=== PATIENT | male | born 1950 | race Caucasian/White ===

== ENCOUNTER 2018-12-13 09:56 | Emergency (ER) | payer OTHER, MEDICARE ==
--- NOTE | 2018-12-13 10:23 | CPEKG ---
Test Reason : OPEN Blood Pressure : / mmHG Vent. Rate : 089 BPM Atrial Rate : 089 BPM P-R Int : 177 ms QRS Dur : 083 ms QT Int : 359 ms P-R-T Axes : 071 070 039 degrees QTc Int : 437 ms Sinus rhythm Confirmed by Marcelo Hunter ([id number]) on 12/13/2018 10:23:10 AM Referred By: Confirmed By:Marcelo Hunter
--- NOTE | 2018-12-13 10:41 | EDPHY ---
General Time Seen by Provider: 12/13/18 10:16 Narrative: CLINICAL IMPRESSION: Syncope, episodic lightheadedness ASSESSMENT/PLAN: 68-year-old male with past medical history of prostate cancer, post radical prostatectomy in 2006, presents to the emergency department after he experienced a syncopal event at 4:00 a.m. This morning associated with episodic lightheadedness since last night. Patient arrives asymptomatic with no physical complaints. Vital signs are stable. No focal neuro deficits on exam. NIH score of 0 with no limb ataxia. EKG shows normal sinus rhythm with no acute ST or T-wave changes, reviewed with Dr. Hunter. Troponin negative. No laboratory findings to suggest anemia, leukocytosis, renal insufficiency, electrolyte imbalance, severe dehydration. Troponin negative. CT head read by Radiology with no acute intracranial abnormality or skull fracture. Patient denies headache, dizziness, vertigo, acute vision or hearing change at this time. Chest x-ray read by Radiology with multiple pulmonary nodules. Patient admits he has had a chronic cough for many years. No smoking history. Patient has no tachycardia, hypoxia, and no complaints of chest pain, shortness of breath, pleuritic chest discomfort, lower leg edema or swelling. I have a very low clinical suspicion for DVT or PE in this patient. I had a long discussion with him and his regarding his diagnostic evaluation and results of his studies. I did discuss an offer admission for further evaluation. They have refused at this time and preferred to follow up with primary care. They were able to establish a primary care appointment on of this week. He was provided copies of his chest x-ray on disc as well as copies of his EKG. Low threshold for return to emergency department sooner as outlined in person and discharge papers. DIFFERENTIAL DX: Differential diagnosis including but not limited to vasovagal syncope, cardiogenic syncope, ACS, renal insufficiency, dehydration, arrhythmia, symptomatic bradycardia hypoglycemia, infectious process, electrolyte abnormality, head injury and intoxicants ED PROCEDURES: See lab and/or imaging results below ED COURSE: 11:00 a.m.: Case discussed with Dr. Thrasher. Chest x-ray shows multiple pulmonary nodules. No prior chest x-ray or chest CT for comparison. 11:35 A.M.: Head CT read by Radiology as negative for acute abnormality. 11:40 a.m.: CT, chest x-ray, laboratory evaluation and EKG reviewed with the patient and his . I did personally show them pictures of his chest x-ray with radiologic indication of multiple pulmonary nodules. We discussed options including admission for further cardiac evaluation and possible chest CT as well as discharge with outpatient PCP follow-up. Patient is followed by [facility]. He feels strongly about discharge and would like to follow up with primary care. They would like to call primary care to see if they can establish an appointment tomorrow. 12:00 p.m.: Patient was able to get an appointment with his primary care doctor on . They wished to be discharged. I will give them detailed discharge instructions as well as copies of EKG and chest x-ray. Warning signs return to emergency department sooner outlined in person and patient and had opportunity to have all questions answered. CHIEF COMPLAINT: Lightheadedness, syncope HPI: 68-year-old male with past medical history of prostate cancer presents to the emergency department with his after he had a syncopal episode at 4:00 a.m. This morning while at a condo in [facility]. Patient reports they had been in [facility] for the whole weekend. He was playing with his children and grandchildren yesterday. He was feeling well throughout the day. Last evening he began experiencing what he describes as lightheadedness associated with"indigestion". He also was feeling somewhat queasy. He woke at 4:00 a.m. To use the restroom and reportedly side up feeling"significantly lightheaded". He use the restroom, walked to the kitchen to get water, and then returning to the bedroom he apparently had a unwitnessed syncopal event. His heard a crash, got up, and states that he was"coming to". She helped him back to bed, he rested for about 20 min and then [place] to [place]. They do live here. He reports past history of intermittent dizzy episodes but has not had this for some time. He reports no coinciding headache, vertigo, neck pain, tinnitus, acute vision or hearing changes. No weakness or numbness of the arms or legs, speech difficulty or word -finding difficulty. No chest pain or shortness of breath. He admits that he did not drink much water yesterday, had 2 cups of coffee, a Pepsi, and split 1 beer with his last night. He currently feels much better, denies lightheadedness and otherwise feels well. He has no personal history of cardiac disease and no family history of cardiac disease. He has borderline hyperlipidemia that is not treated with medications. No history of hypertension or diabetes. He does not smoke. He is otherwise healthy, normally participates in physical activity without difficulty including high- altitude hiking. He did not take anything for his symptoms before arrival PAST MEDICAL HISTORY: Prostate cancer in 2006, borderline hyperlipidemia See nurse/triage notes for additional history if applicable Pertinent Past Surgical History: Radical prostatectomy Family History: None reported Social History: Nonsmoker, , here with his REVIEW OF SYSTEMS: All other systems negative Constitutional: No fever, no chills, appetite change. Eyes: No discharge, vision change ENT: No sore throat, congestion, ear pain. Cardiovascular: No chest pain, no palpitations. Respiratory: No cough, no shortness of breath. Gastrointestinal: No abdominal pain, positive for nausea, no vomiting, diarrhea. Genitourinary: No hematuria, dysuria, flank pain, pelvic pain Musculoskeletal: No back pain, joint swelling, joint pain, myalgias. Skin: No rashes, color change. Neurological: No headache, positive for dizziness, weakness. PHYSICAL EXAM: General Appearance: Alert, oriented, appropriate, cooperative, NAD, well hydrated, non-toxic appearing, VSS, no hypoxia. HEENT: TMs are clear bilaterally no perforation or FB, no injection, no evidence of serous or mucopurulent otitis. Oropharynx clear is no erythema or exudates, no tonsillar hypertrophy or asymmetry. Dentition without abnormality. Eyes: PERRLA, no acute vision change, nystagmus, swelling, discharge, pain or photosensitivity. Conjunctiva pink, no pallor or injection Neck: Supple, nontender, no lymphadenopathy, no midline pain, FROM, no meningismus. Respiratory: There are no retractions, lungs are clear to auscultation. Cardiac: Regular rate and rhythm, no murmurs or gallops. Gastrointestinal: Abdomen is soft, nontender, bowel sounds normal, no masses/ hernia, no rigidity, guarding or focal peritoneal findings. Neurological: Alert and oriented x 3, CN 2-12 grossly intact, normal gait no ataxia, DTR's intact, normal sensation and strength. NIH score 0 with no limb ataxia Skin: Warm, dry, no rashes, no nodules on palpation. Musculoskeletal: Extremities are symmetrical, full range of motion, no tenderness, deformity, swelling, or erythema. Psychiatric: Patient is oriented X 3, there is no agitation. MEDICAL DECISION MAKING: Patient was seen independently but discussed with Secondary supervising physician at time of evaluation who was Dr Hunter . Diagnosis: Syncope, episodic lightheadedness. New, requires workup Summary: See Assessment and Plan for summary of ED visit Clinical lab tests: ordered / reviewed. Independent visualization of images, tracing, or specimens: Yes. Decision to obtain medical records or history from someone other than the patient: Patient's \\ Discussed patient with another provider: Dr. Hunter Patient Progress: Stable. - Diagnostics Imaging Results: Imaging Impressions Chest X-Ray 12/13/18 10:20 Impression: 1. Suspect airways disease without pneumonia 2. Possibly 3 small pulmonary nodules. If there are any old outside imaging studies of the chest, we would be happy to review them to assess for interval change. If not recommend noncontrast chest CT. Results discussed with Larry Connelly at 10:[address] 12/13/18 10:41 Impression: No acute intracranial process. Findings and recommendations discussed with Larry Connelly at 1136 hour, . - History Smoking Status: Never smoked - Objective Vital Signs: Initial Vital Signs Heart Rate 89 12/13/18 10:00 Respiratory Rate 16 12/13/18 10:00 Blood Pressure 154/81 H 12/13/18 10:00 O2 Sat (%) 96 01/21/19 10:00 O2 Delivery Mode Room Air Allergies/Adverse Reactions: No Known Allergies Allergy (Unverified 12/13/18 10:00) Home Medications: Medication Instructions Recorded Aspirin 81mg (*) 12/13/18 Fish Oil 1,000 mg Softgel 12/13/18 Vitamin D3 12/13/18 Laboratory Results: Laboratory Results 12/13/18 10:40 12/13/18 10:40 12/13/18 12/13/18 12/13/18 10:42 10:40 10:40 WBC 7.98 10^3/uL 10^3/uL (3.80-9.50) RBC 4.97 10^6/uL 10^6/uL (4.40-6.38) Hgb 15.2 g/dL g/dL (13.7-17.5) Hct 45.3 % % (40.0-51.0) MCV 91.1 fL fL (81.5-99.8) MCH 30.6 pg pg (27.9-34.1) MCHC 33.6 g/dL g/dL (32.4-36.7) RDW 13.1 % % (11.5-15.2) Plt Count 219 10^3/uL 10^3/uL (150-400) MPV 9.7 fL fL (8.7-11.7) Neut % (Auto) 88.4 % H % (39.3-74.2) Lymph % (Auto) 6.3 % L % (15.0-45.0) [place] % (Auto) 4.3 % L % (4.5-13.0) Eos % (Auto) 0.3 % L % (0.6-7.6) Baso % (Auto) 0.4 % % (0.3-1.7) Nucleat RBC Rel Count 0.0 % % (0.0-0.2) Absolute Neuts (auto) 7.05 10^3/uL H 10^3/uL (1.70-6.50) Absolute Lymphs (auto) 0.50 10^3/uL L 10^3/uL (1.00-3.00) Absolute Monos (auto) 0.34 10^3/uL 10^3/uL (0.30-0.80) Absolute Eos (auto) 0.02 10^3/uL L 10^3/uL (0.03-0.40) Absolute Basos (auto) 0.03 10^3/uL 10^3/uL (0.02-0.10) Absolute Nucleated RBC 0.00 10^3/uL 10^3/uL (0-0.01) Immature Gran % 0.3 % % (0.0-1.1) Immature Gran # 0.02 10^3/uL 10^3/uL (0.00-0.10) RBC/WBC/PLT Morphology TNP Platelet Estimate TNP Sodium 136 mEq/L mEq/L (135-145) Potassium 4.4 mEq/L mEq/L (3.5-5.2) Chloride 110 mEq/L mEq/L (97-110) Carbon Dioxide 20 mEq/l L mEq/l (22-31) Anion Gap 6 mEq/L mEq/L (6-14) BUN 21 mg/dL mg/dL (7-23) Creatinine 1.1 mg/dL mg/dL (0.7-1.3) Estimated GFR > 60 Glucose 98 mg/dL mg/dL (70-100) Calcium 8.9 mg/dL mg/dL (8.5-10.4) POC Troponin I 0.00 ng/mL ng/mL (0.00-0.08) Point of Care Test Results: Chemistry 12/13/18 10:42 POC Troponin I 0.00 ng/mL ng/mL (0.00-0.08) Departure - Departure Disposition: Home, Routine, Self-Care Clinical Impression: Episodic lightheadedness Syncope Qualifiers: Syncope type: unspecified Qualified Code(s): R55 - Syncope and collapse Condition: Good Instructions: Syncope (ED) Additional Instructions: DISCHARGE INSTRUCTIONS FROM YOUR DOCTOR Thank you for visiting our emergency department today. Please keep in mind that discharge from the emergency department does not mean that there is nothing wrong - it simply means that we have not identified an emergency condition that requires further evaluation or treatment in the hospital. You should always plan to follow up with primary care for re-evaluation of your condition in the next 2-3 days. If you have been referred to a specialist, please call as soon as possible (today or tomorrow) to schedule your follow up appointment at the appropriate time. YOUR DIAGNOSTIC EVALUATION IN THE EMERGENCY DEPARTMENT INCLUDED EKG, CARDIAC ENZYMES, CBC, BASIC METABOLIC PANEL, CT OF THE HEAD, AND CHEST X-RAY. WE PROVIDED COPIES OF YOUR CT SCAN ON A DISC AND COPIES OF THE EKG. CT SCAN WAS READ BY THE RADIOLOGIST NEGATIVE FOR ACUTE ABNORMALITY. YOU DO HAVE MULTIPLE PULMONARY NODULES ON CHEST X-RAY. IT WAS RECOMMENDED BY RADIOLOGY THAT THIS BE FOLLOWED UP BY A CT SCAN OF THE CHEST. LAB WORK TODAY SHOWED NEGATIVE CARDIAC ENZYMES, NORMAL ELECTROLYTES AND RENAL FUNCTION, NO ANEMIA OR ELEVATION IN THE WHITE BLOOD COUNT, AND NO OTHER SIGNIFICANT ABNORMALITIES. WE DID DISCUSS AN OFFER ADMISSION FOR FURTHER EVALUATION AND WORKUP SECONDARY TO SYNCOPE. YOU HAVE DECLINED AND WISHED TO FOLLOW UP WITH YOUR PRIMARY CARE PROVIDER. PLEASE KEEP THIS APPOINTMENT. PLEASE RETURN TO THE EMERGENCY DEPARTMENT IMMEDIATELY FOR RETURN OF LIGHTHEADEDNESS OR DIZZINESS, VERTIGO, SEVERE HEADACHES, ALTERED MENTAL STATUS, UNILATERAL ARM OR LEG WEAKNESS, TROUBLE WALKING, TROUBLE FINDING YOUR WORDS, CHEST PAIN OR SHORTNESS OF BREATH, UNEXPLAINED LEG SWELLING, ABDOMINAL PAIN NAUSEA VOMITING, FEVER OR ANY OTHER CONCERNS. People present with illnesses and injuries in different ways, and it is always possible that we have missed something. You may always return for re-evaluation if symptoms worsen or if they are not improving or if you develop new/different symptoms. Again, thank you for choosing our emergency department. We hope that you feel better. Referrals: CAM JOSEPH [Primary Care Provider] - 2-3 days without fail
[2018-12-13 10:51] LABS: PLATELET COUNT 219 10^3/uL (150-400)
[2018-12-13 12:07] VITALS: BP 120/76
== END 2018-12-13 12:38 | disposition home or self-care (01) ==
DX: R55 Syncope and collapse (principal); R91.8 Other nonspecific abnormal finding of lung field
CPT/HCPCS: 84484-ER

== ENCOUNTER → 2018-12-31 | Outpatient (CLI) | payer OTHER, MEDICARE | LOC: BHFA 14:00 | PROVIDERS: ATTEND Internal Medicine Cardiovascular Disease | DX: R55 Syncope and collapse (principal) ==

== ENCOUNTER 2019-01-01 20:46 | Observation (INO) | payer OTHER, MEDICARE ==
[2019-01-01] MEDS ORDERED: NS 1,000 ML IV ONE (20:55)
--- NOTE | 2019-01-01 20:58 | EDPHY ---
H & P Time Seen by Provider: 01/01/19 20:56 HPI/ROS: HPI CHIEF COMPLAINT: Possible syncope at dinner. HISTORY OF PRESENT ILLNESS: 68-year-old male presents emergency room by EMS after he had a syncopal episode at dinner. He was seated position. States he was in a seated position for approximately 2 hr. He is having dinner. He did have a glass of wine. He felt all the sudden lightheaded felt like he was going to pass out and laid his head down on the table. He is unsure exactly if he passed out. 911 was called. Denies any chest pain or palpitations denied headache. Denied dizziness room spinning. [place] very lightheaded. Reports to me that he recently had this lightheadedness and present to the emergency room approximately 2 weeks ago for this. Was discharged subsequently home with placed on Holter monitor. He states they have not found anything for his lightheadedness previously. He arrives to the emergency room hemodynamically stable EMS reports initial blood pressure was 70s over 40s Improved 90s over 50s. Past Medical History: Denies significant medical history Past Surgical History: Denies significant surgical history Social History: Denies drugs alcohol tobacco. Did have a glass of wine tonight. Family History: Noncontributory ROS REVIEW OF SYSTEMS: 10 Systems were reviewed and negative with the exception of the elements mentioned in the history of present illness. Exam Constitutional nontoxic, no acute distress triage nursing summary reviewed, vital signs reviewed, awake/alert. Vital signs stable Eyes normal conjunctivae and sclera, EOMI, PERRLA. HENT normal inspection, atraumatic, moist mucus membranes, no epistaxis, neck supple/ no meningismus, no raccoon eyes. Respiratory clear to auscultation bilaterally, normal breath sounds, no respiratory distress, no wheezing. Cardiovascular rate normal, regular rhythm, no murmur, no edema, distal pulses normal. Gastrointestinal soft, non-tender, no rebound, no guarding, normal bowel sounds, no distension, no pulsatile mass. Genitourinary no CVA tenderness. Musculoskeletal no midline vertebral tenderness, full range of motion, no calf swelling, no tenderness of extremities, no meningismus, good pulses, neurovascularly intact. Skin pink, warm, & dry, no rash, skin atraumatic. Neurologic awake, alert and oriented x 3, AAOx3, moves all 4 extremities equally, motor intact, sensory intact, CN II-XII intact, normal cerebellar, normal vision, normal speech. Psychiatric normal mood/affect. Heme/Lymph/Immune no lymphadenopathy. Differential Diagnosis: Differential diagnosis includes but is not limited to: ACS, atypical chest pain, pneumothorax, pneumonia, pulmonary embolism, aortic dissection, congestive heart failure, tumor, musculoskeletal pain, esophageal pain, GERD, peptic ulcer disease, pancreatitis Medical Decision Making: Plan for this patient IV establishment IV fluid bolus , EKG, troponin, basic electrolytes, cardiac monitoring. Re-evaluation: 2057: Given that this is this patient's 2nd episode of this plan will be for admission the hospital for further evaluation of syncope and cardiac arrhythmia. This happened tonight at rest while seated. EKG interpretation by me on record in [employer] system. Impression time of EKG 2055, sinus rhythm rate of 70 no signs of cardiac arrhythmia no signs of acute ischemia. EKG stable from previous EKG dated 12/13/2018. ED x-ray chest one view negative for acute cardiopulmonary disease. Image interpreted by myself. Troponin 0.01 EKG stable I have asked the hospitalist service to admit the patient for syncope. Spoke with Jose Nelson. Agrees to admit. 2156: Patient agrees for hospital admission. Agrees for admission syncope. Patient here in emergency room heart rate 76, blood pressure 117/69, pulse ox 90 % on room air. Patient resting comfortably. No chest pain or shortness of breath. Source: Patient, EMS - Medical/Surgical History Hx Asthma: No Hx Chronic Respiratory Disease: No Hx Diabetes: No Hx Cardiac Disease: No Hx Renal Disease: No Hx Cirrhosis: No Hx Alcoholism: No Hx HIV/AIDS: No Hx Splenectomy or Spleen Trauma: No Other PMH: prostatectomy for prostate cancer - Social History Smoking Status: Never smoked Constitutional: Initial Vital Signs Temperature (C) 36.7 C 01/01/19 20:55 Heart Rate 74 01/01/19 20:55 Respiratory Rate 16 01/01/19 20:55 Blood Pressure 120/75 01/01/19 20:55 O2 Sat (%) 96 01/01/19 20:55 O2 Delivery Mode Room Air O2 (L/minute) 2 Allergies/Adverse Reactions: No Known Allergies Allergy (Verified 01/01/19 20:55) Home Medications: Medication Instructions Recorded Aspirin [Aspirin 81mg (*)] 81 mg PO DAILY 12/13/18 Cholecalciferol Vit D3 [Vitamin D3 2,000 units PO DAILY 12/13/18 (*)] [place]-3 Fatty Acids [Fish Oil 1000 1,000 mg PO DAILY 12/13/18 mg (*)] Medical Decision Making - Data Points Laboratory Results: Laboratory Results 01/01/19 20:45 01/01/19 20:45 Medications Given: Discontinued Medications Heparin Sodium (Porcine) (Heparin Sc Injection) 5,000 unit SC Q8 HARRIET Stop: 06/30/19 21:59 Last Admin: 01/02/19 22:24 Dose: 5,000 unit Sodium Chloride (Ns) 1,000 mls @ 0 mls/hr IV EDNOW ONE; Wide Open PRN Reason: Protocol Stop: 01/01/19 20:56 Last Admin: 01/01/19 21:03 Dose: 1,000 mls Sodium Chloride (Ns) 1,000 mls @ 75 mls/hr IV CONT HARRIET Stop: 06/30/19 21:59 Last Admin: 01/01/19 23:09 Dose: 1,000 mls Lidocaine HCl (Lidocaine Hcl 1%) 0 - 300 mg SC ONCALL ONE Stop: 01/03/19 00:47 Last Admin: 01/03/19 10:49 Dose: 100 mg Point of Care Test Results: Chemistry 01/01/19 21:05 POC Troponin I 0.01 ng/mL ng/mL (0.00-0.08) Departure - Departure Disposition: [facility] Inpatient Acute Clinical Impression: Syncope Qualifiers: Syncope type: unspecified Qualified Code(s): R55 - Syncope and collapse Condition: Fair
[2019-01-01 21:13] LABS: PLATELET COUNT 206 10^3/uL (150-400)
--- NOTE | 2019-01-01 21:32 | PDGENHP ---
History and Physical - Chief Complaint Presyncope - History of Present Illness Patient is a 68-year-old healthy male presented to the emergency room after his was concerned that he nearly fainted. He was sitting with his after dinner just talking when he said that he felt very full. He does not think that he passed out and he did not get dizzy or feel faint but his said that he looked very pale and maybe for a few seconds put his head down. Afterwards they said that he did not look good and so they called EMS and had him transported to [facility] for further evaluation. He denied having any racing heart, or chest pain and denied any dizziness faintness seeing stars blurry or tunnel vision. He had an episode similar to this about 3 weeks ago while he was at [facility] [employer]. He got up in the middle of the night to have a drink of water and while walking back to his bed apparently fainted and fell on the floor. The next morning they drove back to [place] and came to the emergency room. He had a Holter monitor placed and a carotid ultrasound and an appointment was scheduled for him to follow up with Cardiology in about a week. History Information - Allergies/Home Medication List Allergies/Adverse Reactions: No Known Allergies Allergy (Verified 01/01/19 20:55) Home Medications: Aspirin 81mg (*) 12/13/18 [Last Taken Unknown] Fish Oil 1,000 mg Softgel 12/13/18 [Last Taken Unknown] Vitamin D3 12/13/18 [Last Taken Unknown] I have personally reviewed and updated: family history, medical history, social history, surgical history - Past Medical History Additional medical history: prostate cancer - Surgical History Additional surgical history: prostectomy - Family History Positive for: non-pertinent - Social History Smoking Status: Never smoked Review of Systems Review of Systems: ROS: 10pt was reviewed & negative except for what was stated in HPI & below Physical Exam Physical Exam: Temp Pulse Resp BP Pulse Ox 36.7 C 74 16 120/75 100 01/01/19 20:55 01/01/19 20:55 01/01/19 20:55 01/01/19 20:55 01/01/19 20:55 Constitutional: no apparent distress, appears nourished, not in pain Eyes: PERRL, anicteric sclera, EOMI Ears, Nose, Mouth, Throat: moist mucous membranes, hearing normal, ears appear normal, no oral mucosal ulcers Cardiovascular: regular rate and rhythym, no murmur, rub, or gallop, No edema Respiratory: no respiratory distress, no rales or rhonchi, clear to auscultation Gastrointestinal: normoactive bowel sounds, soft, non-tender abdomen, no palpable masses Genitourinary: no bladder fullness, no bladder tenderness Skin: warm, normal color, no rashes or abrasions, no fluctuance, no induration, No mottled Musculoskeletal: full muscle strength, no muscle tenderness, normal joint ROM, no joint effusions Psychiatric: interacting appropriately, not anxious, not encephalopathic, thought process linear Lymph, Heme, Immunologic: no cervical LAD, no supraclavicular LAD Lab Data & Imaging Review 01/01/19 20:45 01/01/19 20:45 WBC 8.28 10^3/uL (3.80-9.50) 01/01/19 20:45 RBC 5.16 10^6/uL (4.40-6.38) 01/01/19 20:45 Hgb 15.4 g/dL (13.7-17.5) 01/01/19 20:45 Hct 46.2 % (40.0-51.0) 01/01/19 20:45 MCV 89.5 fL (81.5-99.8) 01/01/19 20:45 MCH 29.8 pg (27.9-34.1) 01/01/19 20:45 MCHC 33.3 g/dL (32.4-36.7) 01/01/19 20:45 RDW 13.1 % (11.5-15.2) 01/01/19 20:45 Plt Count 206 10^3/uL (150-400) 01/01/19 20:45 MPV 10.0 fL (8.7-11.7) 01/01/19 20:45 Neut % (Auto) 51.6 % (39.3-74.2) 01/01/19 20:45 Lymph % (Auto) 37.7 % (15.0-45.0) 01/01/19 20:45 Esmeralda % (Auto) 7.4 % (4.5-13.0) 01/01/19 20:45 Eos % (Auto) 1.7 % (0.6-7.6) 01/01/19 20:45 Baso % (Auto) 1.2 % (0.3-1.7) 01/01/19 20:45 Nucleat RBC Rel Count 0.0 % (0.0-0.2) 01/01/19 20:45 Absolute Neuts (auto) 4.28 10^3/uL (1.70-6.50) 01/01/19 20:45 Absolute Lymphs (auto) 3.12 10^3/uL (1.00-3.00) H 01/01/19 20:45 Absolute Monos (auto) 0.61 10^3/uL (0.30-0.80) 01/01/19 20:45 Absolute Eos (auto) 0.14 10^3/uL (0.03-0.40) 01/01/19 20:45 Absolute Basos (auto) 0.10 10^3/uL (0.02-0.10) 01/01/19 20:45 Absolute Nucleated RBC 0.00 10^3/uL (0-0.01) 01/01/19 20:45 Immature Gran % 0.4 % (0.0-1.1) 01/01/19 20:45 Immature Gran # 0.03 10^3/uL (0.00-0.10) 01/01/19 20:45 Sodium 138 mEq/L (135-145) 01/01/19 20:45 Potassium 4.0 mEq/L (3.5-5.2) 01/01/19 20:45 Chloride 107 mEq/L (97-110) 01/01/19 20:45 Carbon Dioxide 23 mEq/l (22-31) 01/01/19 20:45 Anion Gap 8 mEq/L (6-14) 01/01/19 20:45 BUN 21 mg/dL (7-23) 01/01/19 20:45 Creatinine 1.2 mg/dL (0.7-1.3) 01/01/19 20:45 Estimated GFR 60 01/01/19 20:45 Glucose 106 mg/dL (70-100) H 01/01/19 20:45 Calcium 9.1 mg/dL (8.5-10.4) 02/09/19 20:45 Assessment & Plan Assessment: 68-year-old healthy male admitted with syncope Syncope (Acute)- his EKG is completely normal. Labs unremarkable. Vital signs within normal limits, and his exam is benign. I discussed the case with the emergency room physician and do think it is a good idea for him to be monitored overnight. -check orthostatics -monitor on telemetry -he has an appointment with Cardiology in about a week might as well just have them see him while he is here -echo in the morning Prophylaxis-SCDs and heparin Fluids-intravenous saline Electrolytes-within normal limits Nutrition-regular diet Cor-full code Dispo-observation for syncope
[2019-01-01] MEDS ORDERED: ACETAMINOPHEN 325 MG TAB PO PRN (21:53)
[2019-01-01] MEDS ORDERED: ONDANSETRON 4 MG/2 ML VIAL IVP PRN (21:53)
[2019-01-01] MEDS ORDERED: ONDANSETRON DISINTEGRATING 4 MG TAB PO PRN (21:53)
[2019-01-01] MEDS ORDERED: NS 1,000 ML IV SCH (22:00)
[2019-01-01] MEDS: HEPARIN 5,000 UNIT/0.5 ML INJ SC SCH (23:08)
[2019-01-02 05:18] LABS: PLATELET COUNT 187 10^3/uL (150-400)
[2019-01-02] MEDS: HEPARIN 5,000 UNIT/0.5 ML INJ SC SCH ×3 (05:53→22:24)
--- NOTE | 2019-01-02 11:26 | GCON ---
[f rep st] CONSULTATION SUPERVISING MEDICATION NURSE: Roc Swanson MD REASON FOR CONSULTATION: Syncope. HISTORY OF PRESENT ILLNESS: 68-year-old male presents to the ED for further evaluation of syncope occurring last night after dinner. This is his second lifetime episode of syncope, with his first episode occurring roughly 1 month ago. Preceding this event last night, patient had been eating dinner with his and some friends at a local restaurant. He noted sudden onset of lightheadedness for roughly 30 to 60 seconds, at which time he put his head down on the table. He does not recall if he lost consciousness, but he has no recollection of his friend contacting EMS, and there is a notable gap in his memory during this time frame. He had no other preceding symptoms aside from lightheadedness and denies any chest discomfort, palpitations, or diaphoresis. He had had roughly 1 glass of wine and no other substances leading up to this event. He believes he was adequately hydrated without any other concerning symptoms. His first lifetime syncopal event occurred roughly a month 1 month ago when he was staying [place] with his . He felt quite nauseous when he went to bed, but was able to sleep for several hours. He woke up around 430 in the morning and noted a markedly lightheadedness at that time. He ambulated to the restroom without issue. He then proceeded to the kitchen for a glass of water and continued to feel notably lightheaded. When he was to returning to the bedroom from the kitchen, he suddenly lost consciousness. His awoke at that time and reports that he regained consciousness fairly quickly. Again, preceding this episode, he had no other symptoms aside from lightheadedness. In addition to these 2 syncopal events, patient had a sudden onset of presyncope occurring last year while driving. He quickly pulled over to the side of the road and his symptoms passed within roughly 60 seconds. The patient is quite active overall without any exertional symptoms whatsoever. He has no other cardiovascular complaints. He did wear a Holter monitor last week for further evaluation of his initial syncopal event, although unfortunately the monitor ended roughly 5 hours before last night's event. 12- lead EKG and laboratory studies have been unremarkable. No arrhythmia on telemetry overnight. PAST MEDICAL HISTORY: Prostate cancer. PAST SURGICAL HISTORY: Prostatectomy. FAMILY HISTORY: Mother had a history of syncope and hypotension, she in her 80s of non-cardiovascular issues. No family history of sudden cardiac or before the age of 40. SOCIAL HISTORY: He is . He is a nonsmoker. REVIEW OF SYSTEMS: CONSTITUTIONAL: No fatigue. CARDIOVASCULAR: No chest discomfort, dyspnea, orthopnea, edema, jaw or arm pain. No recurrence of syncope of pre-syncope since last night. RESPIRATORY: No dyspnea or cough. GI : No nausea or vomiting. Good appetite. MUSCULOSKELETAL: Full range of motion. PHYSICAL EXAM: GENERAL: He is alert and oriented x4, no apparent distress. VITAL SIGNS: Blood pressure 130/82, heart rate 72, respiratory rate 16, SpO2 96 % on room air, temp 37 degrees Celsius. RESPIRATORY: Lungs are clear to auscultation. No adventitious breath sounds. CARDIOVASCULAR: Regular rate and rhythm. Normal S1, S2, no murmurs, gallops, or rubs. SKIN: [place], warm, and dry without cyanosis, clubbing, or edema. ABDOMEN: Soft, nontender. EXTREMITIES: Normal exam and no edema. LABORATORY STUDIES: Drawn today : CBC and BMP are normal. Total protein 5.6, total albumin 3.1. IMPRESSION: 68-year-old male with a history of syncope x2, and 1 presyncopal event while driving, all occurring within the past year. Syncope has been preceded by a brief period of lightheadedness without other associated symptoms. Query whether syncope is neurocardiogenic versus related to arrhythmia. Laboratory studies have been unremarkable to this point. 12-lead EKG demonstrates NSR. Patient is, otherwise, healthy without exertional symptoms or cardiovascular concerns. PLAN: 1. Echocardiogram with bubble study today. 2. Loop recorder to be implanted tomorrow morning before discharge. 3. N.p.o. after midnight. 4. The patient will follow up in 1 to 2 weeks for an outpatient treadmill stress test and a consultation with Dr. Swanson for further evaluation of recurrent syncope. 5. Electrophysiology will continue to follow. TIME SPENT ON CONSULTATION: Greater than 30 minutes. /[id number]/MODL MTDD
--- NOTE | 2019-01-02 11:34 | HOSPPROG ---
Hospitalist Progress Note Assessment/Plan: 68-year-old healthy male admitted with syncope Syncope (Acute)- his EKG is completely normal. Labs unremarkable. Vital signs within normal limits, and his exam is benign. -Orthostatics checked this AM were negative, although has been on IVF overnight -monitor on telemetry, no acute events -Cardiology consulted this AM, recommending TTE w/ bubble study today, loop recorder implantation tomorrow (NPO after midnight), outpatient treadmill stress test and f/u with Dr. Swanson in 1-2 weeks Prophylaxis-SCDs and heparin Fluids-intravenous saline Electrolytes-within normal limits Nutrition-regular diet Cor-full code Dispo-Pending above evaluation, korin d/c tomorrow after loop recorder implantation Subjective: Patient denies complaints this AM Objective: Vital Signs Temp Pulse Resp BP Pulse Ox 36.7 C 88 19 120/85 H 93 01/02/19 11:11 01/02/19 11:11 01/02/19 11:11 01/02/19 11:11 01/02/19 11:11 Laboratory Results 01/02/19 03:15 01/02/19 03:15 01/01/19 01/02/19 01/03/19 05:59 05:59 05:59 Intake Total 1700 Balance 1700 - Physical Exam Constitutional: no apparent distress Eyes: PERRL Ears, Nose, Mouth, Throat: moist mucous membranes Cardiovascular: regular rate and rhythym Respiratory: no respiratory distress, clear to auscultation Gastrointestinal: soft, non-tender abdomen Skin: warm Musculoskeletal: full muscle strength Neurologic: AAOx3 Psychiatric: interacting appropriately ICD10 Worksheet Patient Problems: Problems Problem Status Onset Syncope Acute
--- NOTE | 2019-01-02 13:46 | ECHO ---
[email or web address] [address] [address] Main: [phone] Fax: Transthoracic Echocardiogram Name: HANY CARLTON MR#: [id number] Study Date: 01/02/2019 Study Time: 12:17 PM Date of : 1950 Age: 68 year(s) Height: 180.3 cm (71 in.) Weight: 88.45 kg (195 lb.) BSA: 2.09 m2 Gender: Male Examination: Echo Indication: Cardiac: syncope Image Quality: Good Contrast: Requested by: Xi Graham BP: 120 mmHg/85 mmHg Heart Rate: Rhythm: Indication: Cardiac: syncope Procedure Staff Scoop Driver: Lucia Schwab RDCS Reading Physician: Tonya Kraus MD Requesting Provider: Conclusions: Normal size left ventricle. No LV hypertrophy. Normal global systolic LV function. EF is 74 %. No regional wall motion abnormality. Normal diastolic LV function. Normal size right ventricle. Normal RV function. Trivial to mild mitral regurgitation. The pulmonary artery pressure is normal. No pericardial effusion. There is no previous echocardiogram for comparison. Measurements: Chambers Valvular Assessment AV/MV Valvular Assessment TV/PV Normal Normal Normal Name Value Range Name Value Range Name Value Range Ao Madeleine (MM): 3.9 cm (2.2 cm-3.7 AV Vmax: 1.03 m/s (1 m/s-1.7 TR Vmax: 2.28 mm/s ( - ) cm) m/s) TR PGmax: 21 mmHg ( - ) IVSd (2D): 0.8 cm (0.6 cm-1.1 AV meanP mmHg ( - ) syst. PAP: 26 mmHg ( - ) cm) MV E Vmax: 0.47 m/s ( - ) LVDd (2D): 4.4 cm (4.2 cm-5.9 MV A Vmax: 0.42 m/s ( - ) cm) MV E/A: 1.12 ( - ) LVPWd (2D): 0.8 cm (0.6 cm-1 cm) LVEF (BP): 74 % (>=55 %) Continued Measurements: Chambers Valvular Assessment AV/MV Valvular Assessment TV/PV Patient: HANY CARLTON Study Date: 01/02/2019 Page 1 of 2 12:17 PM Name Value Name Value Name Value LADs: 2.8 cm MV E' Septal: 0.08 m/s CVP (est.): 5 mmHg LADs Lon.4 cm MV E/E' Septal: 6.10 LA Area: 15.9 cm2 MV E/E' Lateral: 5.50 Additional Vessels Name Value Ao Ascendin.5 cm Findings: Left Ventricle: Normal size left ventricle. No LV hypertrophy. Normal global systolic LV function. EF is 74 %. No regional wall motion abnormality. Normal diastolic LV function. Right Ventricle: Normal size right ventricle. Normal RV function. Left Atrium: The left atrium is normal in size. Right Atrium: The right atrium is normal in size. Mitral Valve: The mitral valve is normal in appearance and function. Trivial to mild mitral regurgitation. Aortic Valve: The aortic valve is tri-leaflet. Minimal aortic cusp calcification is noted. There is no aortic valve regurgitation. Tricuspid Valve: The tricuspid valve is normal in appearance and function. Trivial tricuspid valve regurgitation. The pulmonary artery pressure is normal. Pulmonic Valve: Pulmonary valve not well visualized. Aorta: The aorta is normal. Pericardium: No pericardial effusion. (No Signature Object) Patient: HANY CARLTON Study Date: 01/02/2019 Page 2 of 2 12:17 PM [id number]
--- NOTE | 2019-01-02 15:43 | ASMTCMCOM ---
CM Note CM Note Notes: 01/02/2019 Case Management Note Discussed pt during rounds this morning. Pt admitted after episode of syncope. Cath planned for tomorrow. There are no therapy evals ordered at this time. There are no identified case management d/c needs d/t pt age, marital status, and independence with ADL's prior to admission. Case Management d/c poc: independent with follow up as directed. Case Management available if needs change. Date Signed: 01/02/2019 03:42 PM Electronically Signed By:Ivana Valle RN
[2019-01-03] MEDS ORDERED: LIDOCAINE 1% 300 MG/30 ML SDV SC ONE ×2 (00:46→09:39)
[2019-01-03 07:43] VITALS: BP 113/85
[2019-01-03] MEDS ORDERED: OMEGA-3 FATTY ACIDS 1,000 MG CAP PO SCH (09:00)
[2019-01-03] MEDS ORDERED: ASPIRIN 81 MG CHEWABLE TAB PO SCH (09:00)
[2019-01-03] MEDS ORDERED: CHOLECALCIFEROL VIT D3 1,000 UNITS TAB PO SCH (09:00)
--- NOTE | 2019-01-03 10:28 | PDGENHP ---
History & Physical Chief Complaint: Syncope History of Present Illness: 2 recent syncopal events within the past month, unclear etiology. 1 episode of pre-syncope while driving. Syncope has been perceeded by a brief episode of lightheadedness. No other cardiovascular symptoms. Relevant Physical Exam: General: A&Ox4, no apparent distress. Respiratory: CTA. Cardiac: Regular rate and rhythm, S1, S2 Cardiorespiratory Assessment: Proceed with ILR implant as planned for today. Follow-up in 1-2 weeks for an ETT and follow-up visit with Dr. Swanson. No driving until syncope can be further evaluated
--- NOTE | 2019-01-03 11:40 | PDDCSUM ---
Discharge Summary Discharge Summary: Date of Admission: 01/01/2019 Date of Discharge: 01/03/2019 Consults: Cardiology Procedures: TTE, Loop recorder implantation Followup: Treadmill Stress test and Cardiology appt (Dr. Swanson) in 1-2 weeks 68-year-old healthy male admitted with syncope Syncope (Acute)- his EKG is normal. Labs unremarkable. Vital signs within normal limits, and his exam is benign. -Orthostatics checked were negative, although was on IVF overnight -monitored on telemetry, no acute events -Cardiology consulted, recommended TTE w/ bubble study which did not show any abnormalities, loop recorder implantation on 01/03 - Patient will f/u with outpatient treadmill stress test and f/u with Dr. Swanson in 1-2 weeks, he has been instructed to not drive until further evaluation of syncope Time spent on discharge was >35 minutes with >50% of times spent on patient education and counseling.
--- NOTE | 2019-01-03 14:35 | ASDISCHSUM ---
Discharge Information Plan Status:Home with No Needs Medically Cleared to Leave:01/02/2019 Discharge Date:01/03/2019 12:54 PM CM D/C Disposition:Home, Routine, Self-Care ADT D/C Disposition:Home, Routine, Self-Care Projected Discharge Date:01/03/2019 12:54 PM Transportation at D/C: Discharge Delay Reason: Follow-Up Date:01/03/2019 12:54 PM Discharge Slot: Final Diagnosis: Placement Information Patient Contact Information Contact Name:TANNA Relationship: Address:[address] [place] [address] City:[place] Alternate Phone: [facility]/Zip Code:[place] [address] Email: Financial Information Financial Class:Medicare Primary Plan Desc:MEDICARE OUTPATIENT Primary Plan Number:[id number] Secondary Plan Desc:ORAL/PALAK SUPPLEMENT Secondary Plan Number:[id number] Assessment Information LACE LACE Length of stay for Answers: 2 days current admission Acuity / Level of Answers: Yes Care: Did the patient have an inpatient admission? Comorbidities - select Answers: Any tumor (including all that apply lymphoma or leukemia) Score: 7 Date Signed: 01/03/2019 02:32 PM Electronically Signed By:TAMAR No [facility] CM Progress Note CM Note CM Note Notes: 01/02/2019 Case Management Note Discussed pt during rounds this morning. Pt admitted after episode of syncope. Cath planned for tomorrow. There are no therapy evals ordered at this time. There are no identified case management d/c needs d/t pt age, marital status, and independence with ADL's prior to admission. Case Management d/c poc: independent with follow up as directed. Case Management available if needs change. Date Signed: 01/02/2019 03:42 PM Electronically Signed By:Ivana Valle RN Case Management Discharge Plan Note Case Management Discharge Discharge Order Complete? Answers: Yes Patient to Obtain Answers: via Family Medications Transportation Arranged Answers: Family/Friends Discharge Comments Notes: Pt discharged home today with his and no CM needs. He will follow up with outpatient cardiology. Date Signed: 01/03/2019 02:34 PM Electronically Signed By:TAMAR No Intervention Information Intervention Type:*JS-Signed Date of Service:01/03/2019 10:40 AM Patient Type:Observation Staff Member:Shivani Sullivan Hours: Discipline: Severity: Comment:
== END 2019-01-03 12:54 | disposition home or self-care (01) ==
LOC: EDUNIT# → F2W 22:08
PROVIDERS: ADMIT Internal Medicine; ATTEND Internal Medicine
PROC: 0JH602Z Insertion of Monitoring Device into Chest Subcutaneous Tissue and Fascia, Open Approach (ICD-10-PCS; principal; 2019-01-03)
DX: R55 Syncope and collapse (principal); E86.9 Volume depletion, unspecified; Z85.46 Personal history of malignant neoplasm of prostate; Z79.82 Long term (current) use of aspirin
CPT/HCPCS: 33285; 71045; 93306; 96360; 96372; 99285; C1764; G0378; J1644; 84484-ER

== ENCOUNTER → 2019-01-12 | Outpatient (CLI) | payer OTHER, MEDICARE | LOC: BHFA 11:30 | PROVIDERS: ATTEND Internal Medicine Cardiovascular Disease | DX: R55 Syncope and collapse (principal) ==